=== PATIENT | male | born 1955 | race Caucasian/White ===

== ENCOUNTER 2017-06-21 05:09 | Day surgery (SDC) | payer OTHER ==
[~2017-06-21] VITALS: Ht 180.3 cm; Wt 87.5 kg
--- NOTE | ~2017-06-21 | EKG ---
[address] [address] ELECTROCARDIOGRAM REPORT Name: ARRON ALBANAIL LETI Room #: 150-1 [facility].#: [id number] Admission: 06/21/17 Attend Phys: Edvin Palmer MD Discharge: Date of : 55 Report #: [id number] THIS REPORT FOR: //name// [facility] Test Date: 2017-06-21 Test Time: 11:24:04 Pat Name: JUDITH ALBA Department: Room: 150 Gender: M [employer] Supervisor: FERNANDA : 1955 Requested By: Edvin Palmer Order Number: [id number] MD: Ramesh Reddy Measurements Intervals [place] Rate: 73 P: 14 IA: 214 QRS: -14 QRSD: 96 T: 30 QT: 417 QTc: 460 Interpretive Statements Sinus rhythm Borderline prolonged IA interval Left atrial enlargement Borderline ST elevation, anterior leads Compared to ECG 06/06/2016 23:23:54 ST (T wave) deviation now present Electronically Signed On 06-21-2017 16:47:56 CDT by Ramesh Reddy [email or web address] <ELECTRONICALLY SIGNED> By: Ramesh Reddy MD 06/21/17 1647 [id number] Ramesh Reddy MD /EPI
--- NOTE | ~2017-06-21 | O ---
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 POSTOPERATIVE DIAGNOSIS: Right knee pain with medial meniscus tear and chondromalacia. PROCEDURE: Right knee arthroscopy with partial medial meniscectomy and debridement of medial femoral condyle chondromalacia and patellofemoral chondromalacia. SURGEON: Edvin Palmer MD INDICATIONS: This 62-year-old gentleman complains of right knee pain, which has been a persistent problem for some time. We have tried conservative measures without benefit. He has had a previous MRI study, which suggests medial meniscus damage as well as some generalized chondromalacia. Given his ongoing symptoms, we have elected to go ahead with arthroscopic debridement. DESCRIPTION OF PROCEDURE: The patient was placed under general anesthesia. The right leg was supported in a thigh bowen, the thigh tourniquet was inflated to 300 mmHg. A lateral suprapatellar inflow cannula was placed. The arthroscope and probe were introduced. Various compartments were sequentially visualized and documented with arthroscopic photography. The medial compartment did reveal some tearing of the medial meniscus, although this was less severe than I might have anticipated given the MRI findings. There was some fraying and irregularity at the anterior horn and some hypertrophy of the anterior intermeniscal ligament. These areas were debrided. The posterior horn of the medial meniscus also demonstrated some moderate degenerative tearing with irregular vertical and horizontal cleavage tears, this was debrided leaving about the outer one-half of the meniscus intact. The more mid and medial portion of the meniscus was in better shape and did not require further debridement. There was an area of rather significant deep chondromalacia in the mid weightbearing surface of the femoral condyle. This was probably the more severe area of damage. There was some area of exposed subchondral bone. The surrounding area was delaminating and irregular. This was debrided back to a more smooth even margin. The microfracture franc pick was used to create several bleeding holes in the subchondral bone. The [address] [address] OPERATIVE REPORT Name: JUDITH ALBA LETI Room #: 150-1 [facility]#: [id number] Admission: 06/21/17 Attend Phys: Edvin Palmer MD Discharge: Date of : 55 Report #: [id number] corresponding surface on the medial tibial plateau was in better shape and did not require any further treatment. The intercondylar notch revealed some synovial hypertrophy and some bony hypertrophy and spurring causing mild impingement. Areas of bony impingement were debrided with a limited notchplasty. The fibers of the cruciate ligament were frayed, but seemed to be intact and functional. The lateral compartment revealed better cartilage on both the lateral femoral condyle and the lateral tibial plateau. There was some fraying along the inner margin lateral meniscus, but this was rather minor. Limited debridement with a small shaver was accomplished. There was a small amount of cartilage debris in the posterolateral corner which was evacuated. 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 There was some spurring at the inferior pole of the patella, which was debrided. The area of cartilage damage on both the patella and the trochlea were gently debrided, creating a more smooth even margin. This was grade 2 chondromalacia without areas of severe damage, the patella seems to track nicely and seems stable. No other significant abnormalities were identified. The knee was copiously irrigated and then injected with 80 mg of Depo-Medrol and 30 mL of 0.25% Marcaine with epinephrine. The puncture sites were closed with interrupted nylon suture. A sterile dressing was applied. The patient was awakened and returned to recovery room in good condition. By: 1414 1437 Edvin Palmer MD /nt
[~2017-06-21 05:09] MED LIST: CIPRO500 MG PO; COZAAR100 MG PO; FLAGYL500 MG PO; HYDROCODON-ACE1 EAC7 PO; KEFLEX500 MG PO; MUSCLE RELAXER PO; NORCO 5-325 TA1 EACH PO; RELAFEN750 MG PO; TRICOR145 MG PO
[2017-06-21 12:12] VITALS: BP 148/91
[2017-06-21 14:30] VITALS: BP 148/91
== END 2017-06-21 15:10 | disposition home or self-care (01) ==
LOC: TBA 05:09 → OR 05:09 → TBA 05:11 → OR 08:49
DX: M23.211 Derangement of anterior horn of medial meniscus due to old tear or injury, right knee (principal); M23.221 Derangement of posterior horn of medial meniscus due to old tear or injury, right knee; M94.261 Chondromalacia, right knee; I10 Essential (primary) hypertension; Z98.890 Other specified postprocedural states
CPT/HCPCS: 50010; 50101; 50405; 50612; 50991; 50992; 51038; 54170; 56526; 62110; 62900; 70005

== ENCOUNTER → 2020-11-16 | Outpatient (CLI) | payer OTHER | LOC: RAD 10:41 | PROVIDERS: ATTEND Nurse Practitioner | DX: M19.011 Primary osteoarthritis, right shoulder (principal) ==

== ENCOUNTER → 2021-01-05 | Outpatient (CLI) | payer OTHER | LOC: RAD 14:13 | PROVIDERS: ATTEND Nurse Practitioner | DX: M47.26 Other spondylosis with radiculopathy, lumbar region (principal) ==